=== PATIENT | female | born 1935 | race Caucasian/White ===

== ENCOUNTER 2017-02-06 12:48 | Outpatient (CLI) | payer MEDICARE ==
[2017-02-06 13:30] LABS: #Basophils 0.1 thou/uL (0.0-0.2); #Lymphocytes 2.2 thou/uL (1.20-3.40); #Monocytes 0.8 thou/uL (0.11-0.59); #Neutrophils 5.1 thou/uL (1.40-6.50); %Basophils 0.7 % (0.0-1.0); %Eosinophils 0.6 % (0.0-10.0); %Lymphocytes 26.4 % (21.0-51.0); %Monocytes 9.8 % (0.0-10.0); Hematocrit 43.1 % (36.0-47.0); Mean Platelet Volume 7.6 fL (7.4-10.4); Red Blood Cell (RBC) Count 4.75 mill/uL (4.20-5.40); White Blood Cell (WBC) Count 8.2 thou/uL (4.8-10.8)
[2017-02-06 13:43] LABS: ALT (SGPT) 19 U/L (0-55); AST (SGOT) 20 U/L (5-34); Alkaline Phosphatase 83 U/L (40-150); Anion Gap 16 mmol/L (10-20); BUN (Urea Nitrogen) 28 mg/dL (9.8-20.1); Bilirubin, Direct 0.2 mg/dL (0.1-0.3); Bilirubin, Total 0.4 mg/dL (0.2-1.2); Calc. Creatinine Clearance 0 mL/min (70-130); Calcium 9.6 mg/dL (7.8-10.44); Carbon Dioxide 26 mmol/L (23-31); Chloride 103 mmol/L (98-107); Estimated GFR-MDRD 56; LDL Cholesterol, Calculated 49 mg/dL; Protein, Total 6.5 g/dL (5.8-8.1)
[2017-02-06 14:27] LABS: Hemoglobin A1c 5.6 % (4.0-6.0)
== END 2017-02-06 12:49 | disposition home or self-care (01) ==
LOC: NAVSJIPCSP 12:48
PROVIDERS: ATTEND Family Medicine
DX: G62.9 Polyneuropathy, unspecified (principal)
CPT/HCPCS: 80048; 80061; 80076; 83036; 84443; 85025

== ENCOUNTER 2017-06-04 08:42 | Outpatient (CLI) | payer MEDICARE ==
[2017-06-04 13:55] LABS: ALT (SGPT) 14 U/L (8-55); AST (SGOT) 16 U/L (5-34); Albumin 3.9 g/dL (3.4-4.8); Alkaline Phosphatase 66 U/L (40-150); Anion Gap 16 mmol/L (10-20); BUN (Urea Nitrogen) 35 mg/dL (9.8-20.1); Bilirubin, Direct 0.2 mg/dL (0.1-0.3); Bilirubin, Total 0.4 mg/dL (0.2-1.2); CRP (Inflammatory) Less than 0.50 mg/dL (= or < 0.5); Calc. Creatinine Clearance 0 mL/min (70-130); Calcium 9.2 mg/dL (7.8-10.44); Carbon Dioxide 24 mmol/L (23-31); Cardiac Risk 2.2 (Less than 4.5); Chloride 104 mmol/L (98-107); Cholesterol 155 mg/dl (< 200 Desired); Estimated GFR-MDRD 56; Glucose 91 mg/dL (83-110); HDL Cholesterol 69 mg/dL (>60 Neg Risk); LDL Cholesterol, Calculated 70 mg/dL; Potassium 4.1 mmol/L (3.5-5.1); Protein, Total 5.9 g/dL (6.0-8.3); Sodium 140 mmol/L (136-145); Triglycerides 78 mg/dL (Less than 150)
[2017-06-04 13:56] LABS: #Basophils 0.1 thou/uL (0.0-0.2); #Eosinphils 0.3 thou/uL (0.0-0.7); #Lymphocytes 2.1 thou/uL (1.20-3.40); #Monocytes 0.8 thou/uL (0.11-0.59); #Neutrophils 4.3 thou/uL (1.40-6.50); %Eosinophils 3.4 % (0.0-10.0); %Lymphocytes 28.1 % (21.0-51.0); %Monocytes 10.2 % (0.0-10.0); %Neutrophils 57.3 % (42.0-75.0); Hemoglobin 13.2 g/dL (12.0-16.0); Mean Corpuscular HGB CONC 32.5 g/dL (32.0-36.0); Mean Corpuscular Volume 92.2 fl (81.0-99.0); Mean Platelet Volume 6.2 fL (7.4-10.4); Platelet Count 264 thou/uL (130-400); Red Blood Cell (RBC) Count 4.39 mill/uL (4.20-5.40); White Blood Cell (WBC) Count 7.5 thou/uL (4.8-10.8)
[2017-06-04 14:34] LABS: Hemoglobin A1c 5.4 % (4.0-6.0)
== END 2017-06-04 08:43 ==
LOC: NAVSJIPCSP 08:42
PROVIDERS: ATTEND Family Medicine
DX: E78.00 Pure hypercholesterolemia, unspecified (principal); I10 Essential (primary) hypertension; G62.9 Polyneuropathy, unspecified; M06.9 Rheumatoid arthritis, unspecified; Z79.899 Other long term (current) drug therapy
CPT/HCPCS: 36415; 80048; 80061; 80076; 83036; 84443; 85025; 85652; 86140

== ENCOUNTER 2017-08-31 10:27 | Outpatient (CLI) | payer MEDICARE ==
--- NOTE | 2017-08-31 14:17 | RAD ---
LEFT HIP 2 VIEWS: Date: 08/31/17 HISTORY: Pain. COMPARISON: None. FINDINGS: Contour of the femoral head is maintained. Joint space is preserved. No fracture. IMPRESSION: Unremarkable 2 views left hip. POS: [facility]
--- NOTE | 2017-08-31 14:33 | RAD ---
LUMBAR SPINE 3 VIEWS: Date: 08/31/17 HISTORY: 82-year-old female with low back pain. FINDINGS: Severe disc osteophytosis at multiple levels, as well as facet arthrosis and evidence for spondylosi s. Possible right renal calculus or vascular calcification. Slight central vertical height loss of L 4 and T12 without evidence for acute changes. Minute anterolisthesis of L4 on L5, and minimal retrol isthesis of L2 on L3. IMPRESSION: Evidence for spondylosis. No evidence for acute fracture. Very slight central vertical height loss o f L4 and T12 having more of an old appearance. POS: [facility]
--- NOTE | 2017-08-31 14:38 | RAD ---
EXAM: TWO VIEWS RIGHT HIP: COMPARISON: None. FINDINGS: There is degenerative change. Contour of the femoral head is maintained. Joint space is preserved. No fracture. Indeterminate right inferior and superior pubic ramus fractures are noted. Correlate clinically. IMPRESSION: Indeterminate right inferior and superior pubic rami fractures. Correlate clinically. POS: [facility]
--- NOTE | 2017-08-31 14:40 | RAD ---
PELVIS 1 VIEW: HISTORY: Pain. No known injury. COMPARISON: None. FINDINGS: Extensive enthesopathic changes of the greater trochanters, worse on the left. There is sclerosis o f the pubic symphysis. Mild cortical irregularity of the right inferior pubic ramus. SI joints are unremarkable. IMPRESSION: 1. Cortical irregularity of the right inferior pubic ramus with mild medullary expansion of the rig ht superior pubic ramus. This is age indeterminate. Recommend correlation for focal tenderness. CT may be beneficial 2. Enthesopathic changes of both hamstring tendons. POS: OFF
== END 2017-08-31 10:28 | disposition home or self-care (01) ==
LOC: NAV RAD 10:27
PROVIDERS: ATTEND Family Medicine
DX: M25.552 Pain in left hip (principal); R10.2 Pelvic and perineal pain; M54.10 Radiculopathy, site unspecified; R39.81 Functional urinary incontinence; R15.9 Full incontinence of feces; M25.551 Pain in right hip; S32.591A Other specified fracture of right pubis, initial encounter for closed fracture; M47.896 Other spondylosis, lumbar region
CPT/HCPCS: 72100; 72170

== ENCOUNTER 2019-06-30 12:34 | Outpatient (CLI) | payer MEDICARE ==
--- NOTE | 2019-06-30 13:59 | RAD ---
EXAM: Right hip 2 views: HISTORY: Right hip pain without injury COMPARISON: 08/31/2017 FINDINGS: Arthrosis and degenerative changes. Prominent greater trochanteric infeasibility changes. No acute fracture or dislocation or other significant acute osseous abnormality. IMPRESSION: No significant acute process. Stable appearance from prior study.
== END 2019-06-30 12:35 | disposition home or self-care (01) ==
LOC: NAV RAD 12:34
PROVIDERS: ATTEND Family Medicine
DX: M25.552 Pain in left hip (principal)

== ENCOUNTER 2020-10-31 08:42 | Emergency (ER) | payer MEDICARE ==
[2020-10-31] MEDS ORDERED: Iopamidol 370 76% 100 ML VIAL ONE (09:00)
[2020-10-31 09:36] LABS: ALT (SGPT) 27 U/L (8-55); AST (SGOT) 16 U/L (5-34); Albumin 4.2 g/dL (3.4-4.8); Alkaline Phosphatase 84 U/L (40-110); Anion Gap 18 mmol/L (10-20); BUN (Urea Nitrogen) 35 mg/dL (9.8-20.1); Bilirubin, Total 0.6 mg/dL (0.2-1.2); Calc. Creatinine Clearance 0 mL/min (70-130); Calcium 9.5 mg/dL (7.8-10.44); Carbon Dioxide 22 mmol/L (23-31); Chloride 104 mmol/L (98-107); Glucose 143 mg/dL (83-110); Lipase 15 U/L (8-78); Potassium 4.8 mmol/L (3.5-5.1); Protein, Total 7.2 g/dL (6.0-8.3); Sodium 139 mmol/L (136-145)
[2020-10-31] MEDS ORDERED: Ondansetron PF 4 MG/2 ML Vial ONE (09:37)
[2020-10-31] MEDS ORDERED: Sodium Chloride 0.9% 500 ML ONE (09:37)
[2020-10-31 09:43] LABS: #Basophils 0.1 thou/uL (0.0-0.2); #Lymphocytes 1.6 thou/uL (1.20-3.40); %Basophils 0.5 % (0.0-1.0); %Eosinophils 0.1 % (0.0-10.0); %Lymphocytes 9.3 % (21.0-51.0); %Monocytes 5.9 % (0.0-10.0); %Neutrophils 84.3 % (42.0-75.0); Hemoglobin 15.5 g/dL (12.0-16.0); Mean Corpuscular HGB CONC 33.9 g/dL (32.0-36.0); Mean Corpuscular Hemoglobin 33.4 pg (27.0-31.0); Mean Corpuscular Volume 98.7 fL (78.0-98.0); Mean Platelet Volume 5.4 fL (7.4-10.4); Platelet Count 337 thou/uL (130-400); RBC Distribution Width 12.1 % (11.5-14.5); Red Blood Cell (RBC) Count 4.64 mill/uL (4.20-5.40); White Blood Cell (WBC) Count 17.7 thou/uL (4.8-10.8)
[2020-10-31 09:59] LABS: Bilirubin Negative (Negative); Blood, Urine Negative (Negative); Clarity Clear (Clear); Glucose, Urine (Dipstick) Negative (Negative); Ketone, Urine Negative (Negative); Leukocyte Negative (Negative); Nitrite Negative (Negative); Protein, Urine (Dipstick) 30 mg/dL (Neg-Trace); Urobilinogen 0.2 mg/dL (Less than 2); pH, Urine 5.5 (5.0-9.0)
[2020-10-31] MEDS ORDERED: Morphine 2 MG/ML SYRINGE ONE (10:06)
[2020-10-31 10:07] LABS: Specific Gravity, Urine 1.022 (1.005-1.030); Transitional Epithelial 0-3 HPF (None Seen)
--- NOTE | 2020-10-31 10:39 | CT ---
Exam: CT angiogram abdomen and pelvis with 3-D rendering: HISTORY: Abdominal pain, mid back pain Minimal posterior pleural thickening in the visualized lower lungs with some increased linear interst itial markings, nonspecific. There is very marked motion artifact particularly involving the upper mid abdomen which considerably lowers the sensitivity of this study. Extensive thoracic spine spondylosis. Evidence for probable small cyst in the dome of the right lobe of the liver. Minimal free intraperito venita fluid. The gallbladder is very poorly seen. Pancreas is poorly evaluated because of artifact. Spleen and adrenal glands appear unremarkable. No evidence for renal calculus or overt mass. There is evidence for dilatation of mid small bowel loops with a transition zone in the region of the right lower quadrant. Colonic diverticulosis without acute diverticulitis. Severe lumbar spine spondylosis with minimal vertical height loss of L4 vertebral body. No evidence for acute abdominal aortic aneurysm. Celiac artery, superior mesenteric artery, and infer ior mesenteric arteries are intact. Renal arteries demonstrate some calcific foci but without evidence for high-grade stenosis. Bony demineralization. IMPRESSION: Severe limitation of the study because of marked motion artifact. Evidence for small bowel obstruction. Other findings as above.
== END 2020-10-31 11:40 | disposition short-term general hospital (02) ==
LOC: NAV ERS 08:42
DX: K56.609 Unspecified intestinal obstruction, unspecified as to partial versus complete obstruction (principal); E78.5 Hyperlipidemia, unspecified; I10 Essential (primary) hypertension; Z79.82 Long term (current) use of aspirin; Z79.899 Other long term (current) drug therapy
CPT/HCPCS: 51701; 74174; 80053; 81003; 81015; 83605; 83690; 84484; 85025; 93005; 96374; 96375; J2270; J2405; J7030; Q9967